=== PATIENT | female | born 1995 | race Two or more races ===

== ENCOUNTER 2018-03-28 09:31 | Emergency (ER) | payer MEDICAID ==
[~2018-03-28] VITALS: Ht 152.4 cm; Wt 49.0 kg
[~2018-03-28 09:31] MED LIST: Airborne; CEPH-571 PO; CLIN300C85 PO; HYDR-565 PO; PREN1TAB79 PO; PROM5SYR CORPAK
[2018-03-28 09:34] VITALS: BP 144/98
== END 2018-03-28 10:33 | disposition home or self-care (01) ==
LOC: ER 09:32
DX: S90.121A Contusion of right lesser toe(s) without damage to nail, initial encounter (principal); F17.200 Nicotine dependence, unspecified, uncomplicated; F15.10 Other stimulant abuse, uncomplicated; F12.10 Cannabis abuse, uncomplicated; Z91.013 Allergy to seafood; X58.XXXA Exposure to other specified factors, initial encounter; Y93.89 Activity, other specified; Y92.89 Other specified places as the place of occurrence of the external cause; Y99.8 Other external cause status
CPT/HCPCS: 73630; 99284; A6449; L3260

== ENCOUNTER 2018-05-04 13:59 | Emergency (ER) | payer MEDICAID | END 2018-05-04 14:15 | disposition left against medical advice (07) | LOC: ER 14:00 | DX: R10.9 Unspecified abdominal pain (principal); Z53.21 Procedure and treatment not carried out due to patient leaving prior to being seen by health care provider ==

== ENCOUNTER 2022-05-26 17:12 | Emergency (ER) | payer MEDICAID ==
[~2022-05-26] VITALS: Ht 152.4 cm; Wt 52.4 kg
[~2022-05-26 17:12] MED LIST changes: +CLIN-97 PO; -CLIN300C85 PO; +HYDR-4353 PO; -HYDR-565 PO; +NAPR-56 PO
[2022-05-26 17:23] VITALS: BP 143/84
[2022-05-26 18:06] LABS: URINE HCG NEGATIVE (NEG)
[2022-05-26 18:10] LABS: BASOPHILS % (AUTO) 0.5 % (0-1); EOSINOPHILS # (AUTO) 0.3 X10'3 (0-0.9); EOSINOPHILS % (AUTO) 4.4 % (0-6); HEMATOCRIT 35.8 % (35.0-45.0); HEMOGLOBIN 11.8 g/dl (12.0-16.0); LYMPHOCYTES # (AUTO) 2.1 X10'3 (1.1-4.8); MEAN CORPUSCULAR HEMOGLOBIN 30.1 PG (27.0-31.0); MEAN CORPUSCULAR HGB CONC 33.1 g/dL (33.0-36.5); MEAN PLATELET VOLUME 7.3 FL (7.4-10.4); MONOCYTES # (AUTO) 0.7 X10'3 (0-0.9); MONOCYTES % (AUTO) 8.5 % (2-12); NEUTROPHILS # (AUTO) 4.7 X10'3 (1.8-7.7); NEUTROPHILS % (AUTO) 59.6 % (42-75); PLATELET COUNT 324 X10'3 (140-440); RED BLOOD COUNT 3.94 X10'6 (4.20-5.60); WHITE BLOOD COUNT 7.9 X10'3 (4.5-11.0)
[2022-05-26 18:14] LABS: CLARITY,URINE SLIGHTLY CLOUDY (Clear); COLOR,URINE YELLOW (Yellow); GLUCOSE, URINE NEGATIVE (Neg); KETONES,URINE NEGATIVE (Neg); LEUKOCYTE ESTERASE ,URINE TRACE (Neg); NITRITES, URINE NEGATIVE (Neg); OCCULT BLOOD,URINE TRACE-INTACT (Neg); PH,URINE 5.5 (4.8-8.0); PROTEIN,URINE NEGATIVE (Neg); UROBILINOGEN,URINE 0.2 E.U/dL (0.2-1.0)
[2022-05-26 18:20] LABS: ALANINE AMINOTRANSFERASE 25 U/L (12-78); ALBUMIN 3.7 G/DL (3.4-5.0); ALKALINE PHOSPHATASE 72 IU/L (46-116); ANION GAP 7 (8-16); ASPARTATE AMINO TRANSFERASE 17 U/L (10-37); BILIRUBIN,TOTAL 0.2 MG/DL (0.1-1.0); BLOOD UREA NITROGEN 20 MG/DL (7-18); BUN/CREATININE RATIO 27.4 (6.6-38.0); CALCIUM 8.9 MG/DL (8.5-10.1); CHLORIDE 106 MMOL/L (99-107); CREATININE 0.73 MG/DL (0.40-0.90); GLUCOSE 91 MG/DL (70-104); LIPASE 179 U/L (73-393); POTASSIUM 4.2 MMOL/L (3.5-5.1); SODIUM 139 MMOL/L (135-145); TOTAL PROTEIN 7.4 G/DL (6.4-8.2); eGFR > 90 ML/MIN
[2022-05-26 18:34] LABS: UA COLLECTION TYPE CLN CATCH MIDSTREAM
[2022-05-26 18:36] LABS: BACTERIA,URINE FEW /HPF (Neg); SQUAMOUS EPITHELIAL CELL,UR MANY /LPF (FEW); WBC,URINE 0-4 /HPF (0-4)
[2022-05-26 18:37] LABS: MUCUS STRANDS FEW /LPF (Neg)
== END 2022-05-26 21:35 | disposition home or self-care (01) ==
LOC: ER 17:13
DX: K42.9 Umbilical hernia without obstruction or gangrene (principal); F41.9 Anxiety disorder, unspecified; F12.90 Cannabis use, unspecified, uncomplicated; F15.90 Other stimulant use, unspecified, uncomplicated; Z98.890 Other specified postprocedural states; Z91.013 Allergy to seafood; Z79.2 Long term (current) use of antibiotics; Z79.899 Other long term (current) drug therapy
CPT/HCPCS: 36415; 74018; 80053; 81001; 81025; 83690; 85025; 99284

== ENCOUNTER 2022-09-24 21:45 | Emergency (ER) | payer MEDICAID ==
[~2022-09-24] VITALS: Ht 152.4 cm; Wt 48.5 kg
[~2022-09-24 21:45] MED LIST changes: -NAPR-56 PO
[2022-09-24 22:14] VITALS: BP 132/87
== END 2022-09-25 02:48 | disposition left against medical advice (07) ==
LOC: ER 21:46
DX: H57.12 Ocular pain, left eye (principal); Z53.21 Procedure and treatment not carried out due to patient leaving prior to being seen by health care provider

== ENCOUNTER 2025-02-14 12:11 | Emergency (ER) | payer MEDICAID ==
[~2025-02-14] VITALS: Ht 152.4 cm; Wt 47.7 kg
[2025-02-14 12:15] VITALS: TEMP 98.2
--- NOTE | 2025-02-14 12:46 | RADIOLOGY REPORT ---
CLINICAL INDICATION: KNEE PAIN TECHNIQUE: 4 radiographic views of the right knee were obtained. Comparison: None FINDINGS/IMPRESSION: There is no evidence of acute fracture or dislocation. The visualized joint space is well maintained. The alignment is anatomical. There is no radiopaque foreign body.
--- NOTE | 2025-02-14 14:40 | Physician Documentation ---
History of Present Illness ~ Chief Complaint: Mechanical Fall Stated Complaint: R KNEE PAIN Time Seen by MD: 14:04 Primary Medical Doctor: [facility] HPI This 29-year-old female presents with pain to the right knee after a trip and fall, patient reports that she went in her need sustained no other injury, patient reports that she is able to walk and bear weight though it is painful. Patient reports no other acute symptoms or concerns. Tetanus within 5 Years?: Yes Medication Reconciliation Allergies: Coded Allergies: shellfish derived (Unverified Allergy, Intermediate, rash, 02/14/25) Scheduled Cephalexin (Keflex), 1 CAP PO QID Clindamycin HCL* (Clindamycin HCL*), 1 CAP PO Q6H Hydrocodone Bit/Acetaminophen (Mead 10-325 Tablet), 1 TAB PO HS Vits W-Ca,Fe,FA(<1Mg) ( Vitamins), 1 TAB PO DAILY Scheduled PRN Codeine/Promethazine Hcl (Phenergan-Codeine Oral Syrup), 5 ML CORPAK Q6H PRN Miscellaneous Medications [Airborne], (Reported) Past Medical History Past Medical History: MRSA Abscess, Anxiety Past Surgical History: Alcohol Use: None Drug Use: marijuana, methamphetamine Lives with: Family Lives In: Home Occupation: employed Review of Systems ROS Right knee pain as stated above in the HPI, otherwise all systems are reviewed and negative. Physical Exam Vital Signs: Temperature: 98.2, Heart Rate: 99, Respiratory Rate: 14, BP: 138/42, Pulse Oximetry: 100, Weight: 47.730 Physical Exam VITALS: Reviewed and as above. GENERAL: Alert, nontoxic appearing, no apparent distress. RESPIRATORY: No increased work of breathing, no respiratory distress, speaking in full clear sentences MUSCULOSKELETAL: Right knee ROM intact, no gross laxity, tenderness to anterior aspect of right knee, minimal edema to the anterior aspect of the right knee with no edema to lateral aspects or posterior, no erythema, no ecchymosis SKIN: Abrasion to the anterior aspect of the right knee, no evidence of retain ed foreign body Progress Results/Orders Results/Orders Orders - AVELINO LUONG Ortho Orders (02/14/25 ) Completed Orders - AVELINO LUONG Ketorolac Trometh 15mg/Ml Vial (Toradol (02/14/25 14:40) Vital Signs 02/14/25 02/14/25 02/14/25 12:15 15:03 15:28 Temp 98.2 Pulse 99 97 Resp 14 17 18 B/P (MAP) 138/42 123/98 Pulse Ox 100 98 EKG/XRAY/CT/US/VASC/MRI Bone/Soft Tissue X-Ray (Ext.) : Additional Comment CLINICAL INDICATION: KNEE PAIN TECHNIQUE: 4 radiographic views of the right knee were obtained. Comparison: None FINDINGS/IMPRESSION: There is no evidence of acute fracture or dislocation. The visualized joint space is well maintained. The alignment is anatomical. There is no radiopaque foreign body. Electronically Signed by:KEYSHAWN BRUNSON MD Date & Time: 02/14/25 1244 Dictated by: KEYSHAWN BRUNSON MD Dictation date and time: 02/14/25 1227 I have reviewed and agree with the radiology report. I have reviewed and interpreted the imaging as: No fracture or dislocation Medical Decision Making Findings This 29-year-old female presents after a trip and fall striking her right knee, physical exam significant for abrasion to the anterior aspect of right knee however did not demonstrate any evidence of swelling, ecchymosis, obvious deformity, or limited range of motion. Additionally x-ray did not demonstrate evidence of fracture or dislocation and on exam limb was neurovascularly intact distal to the injury. Suspect localized soft tissue injury. It was reassuring the patient was able to walk and bear weight on affected extremity however due to pain to the joint RICE therapy will be employed and knee wrapped with an Demond wrap and patient provided crutches for comfort to rest the knee. Remainder of physical exam was benign and vital signs stable patient is appropriate for outpatient follow up, patient provided home care instructions and careful return to care precautions. Patient verbalized understanding of home care instructions and return precautions. Differential Dx:Considerations: Include: Fracture(s), Vascular injury, Hematoma(s), Laceration(s), Other (Dislocation, septic joint, neurovascular injury, sprain) Departure Time of Disposition: 14:45 Disposition: 01 HOME / SELF CARE / HOMELESS Impression: Primary Impression: Knee pain Qualified Codes: M25.561 - Pain in right knee Additional Impression: Abrasion Condition: Stable Discharge Instructions: RICE Therapy for Routine Care of Injuries Additional Instructions: I did not see a fracture on your x-ray. Please keep the abrasion to your knee clean, dry, and covered. See the attached home care instructions for RICE therapy, use the provided crutches to help rest your knee, you may use ice on the area 20 minutes at a time with at least 30 minutes between icing your knee, please use ibuprofen and or Tylenol as needed for pain as directed by [id number] packaging (do not start taking ibuprofen for the next 12 hours as you received a similar medication by injection today). Please follow up with your primary care provider in the next few days for a recheck. Please return to the emergency department for any new or worsening concerning symptoms including but not limited to increased pain or swelling of the knee, or if you develop a fever. Referrals: NO PRIMARY CARE PROVIDER (PCP) Education Educated: Patient Educated regarding: diagnosis, treatment, prognosis, need for follow up Signature Scribe Signature: No scribe Attestation: The note accurately reflects work and decisions made by me.CORNELL Roman 02/15/25 02:00 AVELINO LUONG February 14, 2025 14:40
[2025-02-14] MEDS: ketorolac trometh 15mg/ml vial 15 MG/ML ML IM ONE (15:03)
[2025-02-14 15:28] VITALS: BP 123/98; PULSE 97; RESP 18; O2SAT 98
== END 2025-02-14 14:58 | disposition home or self-care (01) ==
LOC: ER 12:11
DX: S80.212A Abrasion, left knee, initial encounter (principal); F41.9 Anxiety disorder, unspecified; F12.90 Cannabis use, unspecified, uncomplicated; F15.90 Other stimulant use, unspecified, uncomplicated; Z88.8 Allergy status to other drugs, medicaments and biological substances; W01.0XXA Fall on same level from slipping, tripping and stumbling without subsequent striking against object, initial encounter; Y93.89 Activity, other specified; Y92.89 Other specified places as the place of occurrence of the external cause; Y99.8 Other external cause status
CPT/HCPCS: 73564; 96372; 99284; J1885; A6449

== ENCOUNTER 2025-07-13 14:03 | Emergency (ER) | payer MEDICAID ==
[~2025-07-13] VITALS: Ht 152.4 cm; Wt 53.7 kg
[~2025-07-13 14:03] MED LIST changes: +CLIN-224 PO; -CLIN-97 PO
[2025-07-13 14:05] VITALS: BP 118/74; PULSE 98; RESP 16; TEMP 97.4; O2SAT 98
--- NOTE | 2025-07-13 14:16 | Physician Documentation ---
HPI ~ General Chief Complaint: Medication Request Stated Complaint: MED REQUEST Primary Medical Doctor: [facility] History of Present Illness HPI Comments Patient is a 30-year-old female that presents to the emergency department for refill of her medications. 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 Patient reports that she has not had her medic ations refilled for approximately 3 months and feels like she would benefit from having them refilled so that she does not relapse on drugs and alcohol. Patient reports that she takes trazodone Atarax and Wellbutrin. Patient reports that she has been unable to establish care with a primary care provider. Medication Reconciliation Allergies: Coded Allergies: shellfish derived (Unverified Allergy, Intermediate, rash, 02/14/25) Scheduled Cephalexin (Keflex), 1 CAP PO QID Clindamycin HCL* (Clindamycin HCL*), 1 CAP PO Q6H Hydrocodone Bit/Acetaminophen (Wellman 10-325 Tablet), 1 TAB PO HS Vits W-Ca,Fe,FA(<1Mg) ( Vitamins), 1 TAB PO DAILY Scheduled PRN Codeine/Promethazine Hcl (Phenergan-Codeine Oral Syrup), 5 ML CORPAK Q6H PRN Miscellaneous Medications [Airborne], (Reported) Past Medical History Past Medical History: MRSA Abscess, Anxiety Past Surgical History: Alcohol Use: None Drug Use: marijuana, methamphetamine Lives with: Family Lives In: Home Occupation: employed Review of Systems ROS As stated above in the HPI, otherwise all systems are reviewed and negative. Physical Exam Physical Exam Vital Signs: Temperature: 97.4, Source: Temporal, Heart Rate: 98, Respiratory Rate: 16, BP: 118/74, Pulse Oximetry: 98, Weight: 53.700 Oxygen Flow Rate: 0 Physical Exam VITALS: Reviewed and as above. GENERAL: Alert, no apparent distress. HEENT: Normocephalic, atraumatic, PERRL, EOMI, dry mucosa, no erythema RESPIRATORY: Lungs clear, normal breath sounds, no respiratory distress. CHEST: No accessory muscle use, no retractions CV: Regular rate, rhythm, no edema, no murmur, No: JVD GI: Soft, non-tender, bowels sounds present, no rebound, guarding, or rigidity BACK: No CVA tenderness, or swelling MUSCULOSKELETAL No deformities, no edema SKIN: Warm and dry, no rash NEURO: Oriented x4, No motor or sensory deficit PSYCH: Normal mood and affect, no agitation Progress Results/Orders Results/Orders Vital Signs 07/13/25 14:05 Temp 97.4 Pulse 98 Resp 16 B/P (MAP) 118/74 Pulse Ox 98 O2 Flow Rate 0 Medical Decision Making Findings Patient is a 30-year-old female that presents to the emergency department for refill of her medications. 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 Patient reports that she has not had her medications refilled for approximately 3 months and feels like she would benefit from having them refilled so that she does not relapse on drugs and alcohol. Patient reports that she takes trazodone Atarax and Wellbutrin. Patient reports that she has been unable to establish care with a primary care provider. Patient will follow up with the primary care provider. Patient will return to the emergency department with any worsening or recurrent symptoms or any additional concerning symptoms that we discussed here today. Was educated on the use of these medications and will discuss any concerns she has with the pharmacist at time of waste picker. Please take your medications as prescribed. Departure Impression: Primary Impression: General medical exam Additional Impression: Medication refill Condition: Stable Discharge Instructions: Medicine Refill at the Emergency Department Additional Instructions: Patient is a 30-year-old female that presents to the emergency department for refill of her medications. 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 Patient reports that she has not had her medications refilled for approximately 3 months and feels like she would benefit from having them refilled so that she does not relapse on drugs and alcohol. Patient reports that she takes trazodone Atarax and Wellbutrin. Patient reports that she has been unable to establish care with a primary care provider. Patient will follow up with the primary care provider. Patient will return to the emergency department with any worsening or recurrent symptoms or any additional concerning symptoms that we discussed here today. Was educated on the use of these medications and will discuss any concerns she has with the pharmacist at time of waste picker. Please take your medications as prescribed. Referrals: NO PRIMARY CARE PROVIDER (PCP) Prescriptions Bupropion HCl (Bupropion Xl) 150 Mg Tab.er.24h 1 TAB PO QAM for 30 Days, #30 TAB 0 Refills Prov: SHERMAN GO 07/13/25 Trazodone HCl (Trazodone HCl) 50 Mg Tablet 1 TAB PO HS for 30 Days, #30 TAB 0 Refills Prov: SHERMAN GO 07/13/25 Hydroxyzine Hcl* (Atarax*) 25 Mg Tablet 1 TAB PO TID PRN for anxiety for 30 Days, #90 TAB 0 Refills Prov: SHERMAN GO 07/13/25 Education Educated: Patient Educated regarding: diagnosis, treatment, need for follow up Signature Scribe Signature: A Attestation: Scribed for Emergency,Department by CORNELL Haas . 07/13/25 14:20 SHERMAN GO Jul 13, 2025 14:16
[2025-07-13] MEDS ORDERED: HYDR-3686 PO ×2 (14:17→14:18)
[2025-07-13] MEDS ORDERED: BUPR-726 PO ×2 (14:17→14:18)
[2025-07-13] MEDS ORDERED: TRAZ-251 PO ×2 (14:17→14:18)
== END 2025-07-13 15:01 | disposition home or self-care (01) ==
LOC: ER 14:03
DX: Z00.00 Encounter for general adult medical examination without abnormal findings (principal); Z76.0 Encounter for issue of repeat prescription; F12.90 Cannabis use, unspecified, uncomplicated; F15.90 Other stimulant use, unspecified, uncomplicated; F41.9 Anxiety disorder, unspecified; Z91.013 Allergy to seafood; Z79.899 Other long term (current) drug therapy; Z98.890 Other specified postprocedural states
CPT/HCPCS: 99281; 99282